=== PATIENT | female | born 1935 | race Caucasian/White ===

== ENCOUNTER 2020-07-22 11:00 | Outpatient (RCR) | payer MEDICARE, SELFPAY ==
[2016-07-13 17:15] VITALS: BMI 26.3
== END 2020-07-22 23:59 ==
LOC: IMMUN 11:00
PROVIDERS: PCP Family Medicine; Visit Provider Family Medicine
DX: Z23 Encounter for immunization (principal)
CPT/HCPCS: 0011A; 0012A; 91301